=== PATIENT | male | born 1995 ===

== ENCOUNTER 2016-12-06 18:57 | Emergency (ER) | payer SELFPAY ==
[2016-12-06 19:02] VITALS: BP 137/60; PULSE 87; RESP 18; TEMP 98; O2SAT 98
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
== END 2016-12-06 21:25 | disposition home or self-care (01) ==
LOC: H.ER 18:57
DX: F90.9 Attention-deficit hyperactivity disorder, unspecified type (principal)

== ENCOUNTER 2016-12-06 23:07 | Observation (INO) | payer SELFPAY ==
[2016-12-07 00:04] LABS: HEMATOCRIT 43.8 % (35.0-51.0); MEAN CELL VOLUME 93.6 fl (80.0-94.0); MEAN CORPUSCULAR HEMOGLOBIN 31.1 pg (27.0-31.0); MEAN CORPUSCULAR HGB CONC 33.2 g/dL (33.0-37.0); RED CELL DISTRIBUTION WIDTH 13.5 % (11.5-14.5); WHITE BLOOD COUNT 6.1 K/uL (4.8-10.8)
[2016-12-07 00:12] LABS: ALB/GLOB RATIO 1.6 (1.0-2.1); ALCOHOL SERUM < 10 mg/dl (0-10); ALKALINE PHOSPHATASE 54 U/L (38-126); ALT/SGPT 47 U/L (21-72); AST/SGOT 27 U/L (17-59); BILIRUBIN,TOTAL 1.9 mg/dl (0.2-1.3); BLOOD UREA NITROGEN 12 mg/dl (9-20); CARBON DIOXIDE 23 mmol/L (22-30); CHLORIDE 105 mmol/L (98-107); GFR AFRICAN-AMERICAN > 60; GLUCOSE,RANDOM 117 mg/dL (75-110); POTASSIUM 3.4 MMOL/L (3.6-5.0); SODIUM 142 mmol/l (132-148); TOTAL PROTEIN 7.3 G/DL (6.3-8.2)
[2016-12-07 01:05] LABS: RBC URINE 1 /hpf (0-3); URINE BACTERIA RARE (<OCC); URINE BILIRUBIN NEGATIVE (NEGATIVE); URINE BLOOD NEGATIVE (NEGATIVE); URINE COLOR YELLOW (YELLOW); URINE GLUCOSE (UA) NEG (Normal); URINE KETONE 20 mg/dL (NEGATIVE); URINE LEUKOCYTE ESTERASE NEG Leu/uL (Negative); URINE PROTEIN NEGATIVE (NEGATIVE); WBC URINE 1 /hpf (0-5)
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
--- NOTE | 2016-12-07 07:09 | ED PDOC ---
- Laboratory Results Result Diagrams: 12/06/16 23:50 12/06/16 23:50 - ECG O2 Sat by Pulse Oximetry: 100 (RA) Pulse Ox Interpretation: Normal Medical Decision Making Medical Decision Making: Time: 6:00 --Patient is signed out to me by Kati Moe PA-C, pending crisis evaluation. *See ED-OBS tab Scribe Attestation: Documented by Paris Márquez, acting as a scribe for Tam March MD Provider Scribe Attestation: All medical record entries made by the Scribe were at my direction and personally dictated by me. I have reviewed the chart and agree that the record accurately reflects my personal performance of the history, physical exam, medical decision making, and the department course for this patient. I have also personally directed, reviewed, and agree with the discharge instructions and disposition. Disposition - Clinical Impression Clinical Impression: ADHD (attention deficit hyperactivity disorder), Autism - POA Present On Arrival: None - Disposition Disposition: Transfer of Care Disposition Time: 07:00 Condition: STABLE Patient Signed Over To: Angelia Knutson ED OBSERVATION Time of observation admission: 01:50 - Observation admission statement Patient is being placed in observation because:: autism, drug abuse - Goals of Observation Goals of observation are:: [facility] evaluation - Progress Note Progress Note: 12/07/16 Time: 6:00 --Patient is resting with stable vitals. Time: 7:00 --Patient is signed out by me to Dr. Angelia Knutson, pending [facility] evaluation
--- NOTE | 2016-12-07 07:26 | ED PDOC ---
- Laboratory Results Result Diagrams: 12/06/16 23:50 12/06/16 23:50 - ECG O2 Sat by Pulse Oximetry: 100 (RA) Pulse Ox Interpretation: Normal Medical Decision Making Medical Decision Making: Receiving sign out: Patient signed out to me by Dr. March at 0700 pending [facility] [place] evaluation. Scribe Attestation: Documented by Dedra Asher acting as a scribe for Angelia Knutson MD. Provider Attestation: All medical record entries made by the Scribe were at my direction and personally dictated by me. I have reviewed the chart and agree that the record accurately reflects my personal performance of the history, physical exam, medical decision making, and the department course for this patient. I have also personally directed, reviewed, and agree with the discharge instructions and disposition. Disposition - Clinical Impression Clinical Impression: ADHD (attention deficit hyperactivity disorder) - POA Present On Arrival: None - Disposition Disposition: Routine/Home Disposition Time: 01:50 Condition: GOOD ED OBSERVATION Date of observation admission: 12/07/16 Time of observation admission: 01:50 - Observation admission statement Patient is being placed in observation because:: Patient w/ autism with reports of substance abuse - Goals of Observation Goals of observation are:: Patient pending [facility] [place] evaluation - Progress Note Progress Note: 12/07/16 07:00 Patient signed out to me pending [facility] [place] evaluation. 12/07/16 08:39 Patient resting in room, no acute distress. 12/07/16 10:10 Patient resting in room, no acute distress. 12/07/16 11:21 Patient seen and evaluated by [facility] team. Patient is stable for discharge home.
--- NOTE | 2016-12-07 08:12 | RAD ---
HISTORY: psych, at mental status change COMPARISON: No prior. TECHNIQUE: Chest PA and lateral FINDINGS: LUNGS: No active pulmonary disease. PLEURA: No significant pleural effusion identified. No pneumothorax apparent. CARDIOVASCULAR: Normal. OSSEOUS STRUCTURES: No significant abnormalities. VISUALIZED UPPER ABDOMEN: Normal. OTHER FINDINGS: None. IMPRESSION: No active disease.
[2016-12-07 11:28] VITALS: BP 132/74; PULSE 74; RESP 18; TEMP 98.6
[2016-12-07 19:51] VITALS: O2SAT 100
== END 2016-12-07 11:33 | disposition home or self-care (01) ==
LOC: H.ER 23:07 → H.EROBSV 12-07 01:50
PROVIDERS: ADMIT Emergency Medicine; ATTEND Emergency Medicine
DX: F90.9 Attention-deficit hyperactivity disorder, unspecified type (principal); F84.0 Autistic disorder
CPT/HCPCS: 71020; 80053; 81003; 85027; 99284; G0378; G0480